=== PATIENT | male | born 1990 | race Caucasian/White ===

== ENCOUNTER 2017-04-29 20:33 | Inpatient (IN) | payer OTHER ==
[~2017-04-29] VITALS: Ht 182.9 cm; Wt 61.7 kg
[~2017-04-29 20:33] MED LIST: DICL250 PO; SILV25CR4 TOP; [UNRECOGNIZED DRUG - CODE] OT
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
[2017-04-29] MEDS ORDERED: fentaNYL-PF 50 mCg/mL 2 mL Inj ONE (20:50)
[2017-04-29] MEDS ORDERED: fentaNYL-PF 50 mCg/mL 2 mL Inj IVPUSH ONE (20:50)
[2017-04-29] MEDS ORDERED: 0.9% Sodium Chloride 1,000 ML IV ONE (21:05)
[2017-04-29 21:12] LABS: BASOPHILS % (AUTO) 0.2 % (0-3); EOSINOPHILS % (AUTO) 1.3 % (0-5); MONOCYTES % (AUTO) 6.6 % (4-12); Mean Corpuscular Volume 82.1 fL (81-100); NEUTROPHILS % (AUTO) 75.8 % (40-74); Platelet Count 343 bil/L (150-400)
[2017-04-29 21:26] LABS: INR 1.04 ratio
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
[2017-04-29] MEDS: HYDROmorphone 0.5 mg/0.5 mL iSecure Syringe IVPUSH PRN ×2 (21:47→23:10)
[2017-04-29 22:00] LABS: TROPONIN T 0.01 ug/L (0.0-0.011)
[2017-04-29] MEDS: Ondansetron 2 mg/mL 2 mL Inj IVPUSH PRN (22:58)
[2017-04-30] VITALS (19 sets, daily range): BP systolic 100–126; BP diastolic 58–87; PULSE 70–95; RESP 14–20; O2SAT 94–99
[2017-04-30] MEDS: HYDROmorphone 0.5 mg/0.5 mL iSecure Syringe IVPUSH PRN (00:03)
[2017-04-30] MEDS ORDERED: MetoCLOpramide 5 mg/mL 2 mL Inj IVPUSH PRN (01:00)
[2017-04-30] MEDS ORDERED: Ondansetron 2 mg/mL 2 mL Inj IVPUSH PRN (01:00)
[2017-04-30] MEDS ORDERED: HYDROmorphone 0.5 mg/0.5 mL iSecure Syringe IVPUSH PRN (01:05)
[2017-04-30] MEDS ORDERED: Glucose 40% Oral Gel 15 Gm Tube PO PRN (01:10)
[2017-04-30] MEDS: Ondansetron 2 mg/mL 2 mL Inj IVPUSH PRN (01:16)
[2017-04-30] MEDS ORDERED: Lidocaine 2% 6mL Topical Jelly ONE (01:16)
[2017-04-30] MEDS: Insulin LISPRO 300 Unit/3 mL Inj SUBQ SCH ×4 (01:21→17:30)
[2017-04-30] MEDS ORDERED: fentaNYL-PF 50 mCg/mL 2 mL Inj IVPUSH ONE (01:35)
[2017-04-30] MEDS ORDERED: fentaNYL-PF 50 mCg/mL 2 mL Inj ONE (01:35)
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
[2017-04-30] MEDS ORDERED: Lidocaine 4% 50 mL Topical Solution TOPICAL ONE (03:21)
[2017-04-30 03:40] LABS: INR 1.01 ratio
[2017-04-30] MEDS: HYDROmorphone PCA 0.2 mg/mL 30 mL Inj IV PRN (05:09)
[2017-04-30] MEDS: Dextrose 5% Lactated Ringer's 1,000 ML IV SCH ×3 (05:23→21:10)
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
--- NOTE | 2017-04-30 07:58 | NUR ---
Admit Received from ED to Room 2026, upon arrival had small emesis. [facility] bed. A&O, bedrest & NPO. No nausea or further emesis noted. Reports pain 6/10 in HIp, LABORATORY IMMUNOLOGIST started 0.3mg (x3) loading dose with good effect to reduce pain. VSS, Tele SR in 80s.
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
--- NOTE | 2017-04-30 08:08 | DRSVH ---
PROCEDURE: X-RAY CHEST ONE VIEW, PORTABLE ([id number]) INDICATIONS: evaluate pulmonary contusion TECHNIQUE: One view of the chest was acquired. COMPARISON: 04/29/2017 FINDINGS: Surgical changes and devices: None. Lungs and pleura: No pleural effusions or pneumothorax. Lungs are clear. Mediastinum: Mediastinal contours appear normal. Heart size is normal. Bones and chest wall: No suspicious bony lesions. Overlying soft tissues appear unremarkable. IMPRESSION: No acute cardiopulmonary abnormality Dictated by: Nino Mckinnon M.D. on 04/30/2017 at 8:05 Approved by: Nino Mckinnon M.D. on 04/30/2017 at 8:06
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
[2017-04-30 09:22] LABS: BASOPHILS % (AUTO) 0.1 % (0-3); EOSINOPHILS % (AUTO) 0.1 % (0-5); MONOCYTES % (AUTO) 10.2 % (4-12); Mean Corpuscular Hemoglobin 28.1 pg (27.0-35.0); Mean Corpuscular Volume 82.1 fL (81-100); NEUTROPHILS % (AUTO) 83.6 % (40-74); Platelet Count 250 bil/L (150-400)
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
--- NOTE | 2017-04-30 17:14 | NUR ---
Pain Patient a/o x 4, c/o right hip pain, using lathing supervisor appropriately for pain control. All drsgs c/d/i, changed per multi share program coordinator this shift. VSS, tele SR. Patient npo, c/o feeling hungry this afternoon, PA aware and up to see patient. Abd soft, active bowel tones this afternoon, patient states he is passing flatus. Christiansen patent yellow uop. Patient on bedrest for 48 hrs, turns self in bed. Family at bedside throughout the shift.
[2017-04-30 23:19] LABS: APPEARANCE,URINE HAZY (CLEAR,HAZY); COLOR,URINE DARK YELLOW (YELLOW); OCCULT BLOOD,URINE LARGE (NEGATIVE); UROBILINOGEN,URINE NORMAL (NORMAL)
[2017-05-01] MEDS: Insulin LISPRO 300 Unit/3 mL Inj SUBQ SCH ×3 (00:03→12:00)
[2017-05-01 03:19] VITALS: BP 104/59; PULSE 75; RESP 16; O2SAT 96
[2017-05-01] MEDS: HYDROmorphone PCA 0.2 mg/mL 30 mL Inj IV PRN (03:29)
[2017-05-01 05:10] LABS: BASOPHILS % (AUTO) 0.3 % (0-3); EOSINOPHILS % (AUTO) 1.4 % (0-5); MONOCYTES % (AUTO) 11.5 % (4-12); Mean Corpuscular Hemoglobin 27.3 pg (27.0-35.0); Mean Corpuscular Volume 83.9 fL (81-100); NEUTROPHILS % (AUTO) 75.1 % (40-74); Platelet Count 230 bil/L (150-400)
[2017-05-01] MEDS: Dextrose 5% Lactated Ringer's 1,000 ML IV SCH ×2 (05:12→08:57)
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
[2017-05-01 05:24] VITALS: RESP 16; O2SAT 97
[2017-05-01 06:18] VITALS: PULSE 81
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
[2017-05-01 08:08] VITALS: BP 109/56; PULSE 70; RESP 16; O2SAT 98
[2017-05-01 08:18] VITALS: RESP 16; O2SAT 98
--- NOTE | 2017-05-01 08:30 | NUR ---
ADILSON ascencio'd, Kuldip jo, per Dr Mcclure
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
--- NOTE | 2017-05-01 11:15 | NUR ---
Evaluation completed. Please go to "Notes" then click on "Assessments and Notes" (bottom left corner of screen). Then select appropriate discipline tab on top of screen.
--- NOTE | 2017-05-01 14:48 | NUR ---
IV fluids dc'd, one touch blood sugars dc'd per Dr Mcclure
--- NOTE | 2017-05-01 15:21 | PCM.DISURG ---
Surgical Discharge Instruction Date of Service May 01, 2017 Dates of Hospitalization Date of Hospital Admission Apr 30, 2017 at 01:13 Providers Admitting Physician: Nils Mcclure MD Primary Care Physician: Jerrell Attending Physician: Nils Mcclure MD Discharge Diagnosis Discharge Diagnosis Right lung contusions, right retroperitoneal hematoma, and multiple scattered abrasions. Post Operative diagnosis Same Diet Discharge Diet: No restrictions Activity Discharge Activity-General: Try not to overdue, Balance rest and activity, Activity as pain allows, Activity as energy allows, No driving while taking narcotic Dressing and Incisional Care Dressing Care: Keep dressing clean, dry & intact Hygiene: May shower, NO bathtub, hot tub or whirlpool Additional Instructions Discharge Instructions Avoid Tylenol containing medications until liver enzyme numbers return to normal. Follow Up Plan Follow Up Plan Follow up with current or new PCP in 2 weeks to recheck liver enzymes which were mildly elevated during your hospital stay. Follow-up appointment: With Primary Care Provider Call your provider for: Fever, Chills, Shortness of breath, Nausea, Vomiting, Wound redness, Increasing wound pain, Discharge @ incision, pus discharge Serafin Man PA-C May 01, 2017 15:21
[2017-05-01] MEDS ORDERED: OXYC5TAB72 PO (15:22)
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
--- NOTE | 2017-05-01 16:39 | NUR ---
Discharge Pt discharged to home with transport by his mother. Pt's IV's dc'd intact. Wounds were redressed and instructions given to pt and his mother on changing dressings. Pt's discharge instructions, follow up appointments and new prescriptions were reviewed. All questions were answered and pt voiced understanding. Pt's belongings were gathered and transported with pt. Pt was escorted off unit to his vehicle by RN.
== END 2017-05-01 16:30 | disposition home or self-care (01) | DRG 965 ==
LOC: EDBD 20:33 → SED 20:33 → PCC 04-30 01:13
PROVIDERS: ADMIT Student in an Organized Health Care Education/Training Program; ATTEND Student in an Organized Health Care Education/Training Program
PROC: 0TJB8ZZ Inspection of Bladder, Via Natural or Artificial Opening Endoscopic (ICD-10-PCS; principal; 2017-04-30)
DX: S36.898A Other injury of other intra-abdominal organs, initial encounter (principal); S27.321A Contusion of lung, unilateral, initial encounter; S70.01XA Contusion of right hip, initial encounter; S50.812A Abrasion of left forearm, initial encounter; S50.811A Abrasion of right forearm, initial encounter; S80.212A Abrasion, left knee, initial encounter; S70.312A Abrasion, left thigh, initial encounter; S37.812A Contusion of adrenal gland, initial encounter; F17.200 Nicotine dependence, unspecified, uncomplicated; R39.198 Other difficulties with micturition; Y92.415 Exit ramp or entrance ramp of street or highway as the place of occurrence of the external cause; V29.88XA Motorcycle rider (driver) (passenger) injured in other specified transport accidents, initial encounter; Y99.9 Unspecified external cause status